=== PATIENT | male | born 1970 | race Caucasian/White ===

== ENCOUNTER 2024-11-06 14:59 | Observation (INO) | payer BC ==
[2024-11-06 15:15] VITALS: RESP 18
[2024-11-06 15:51] LABS: Basophils # (A) 0.06 10*3/uL (0.00-0.10); Basophils % (A) 0.7 %; Eosinophils # (A) 0.01 10*3/uL (0.04-0.35); Eosinophils % (A) 0.1 %; HGB 17.2 g/dL (13.0-17.0); Lymphocytes # (A) 1.91 10*3/uL (0.90-5.00); Lymphocytes % (A) 20.9 %; MCH 38.5 pg (27.0-32.0); MCHC 37.4 g/dL (32.0-37.0); MCV 102.9 fL (80.0-97.0); Mean Platelet Volume 8.5 fL (9.5-12.2); Monocytes # (A) 0.85 10*3/uL (0.20-1.00); Monocytes % (A) 9.3 %; Neutrophils # (A) 6.27 10*3/uL (1.80-7.70); Neutrophils % (A) 68.6 %; Platelet Count 236 10*3/uL (140-440); RBC 4.47 10*6/uL (4.40-5.60); RDW 12.7 % (11.5-14.5); WBC 9.14 10*3/uL (4.50-10.00)
[2024-11-06] MEDS: ONDANSETRON 4 MG/2 ML VIAL IVP STA ×2 (15:51→16:36)
[2024-11-06] MEDS: SODIUM CHLORIDE 0.9% 1,000 ML IV ONE ×2 (15:52→17:50)
[2024-11-06] MEDS: SODIUM CHLORIDE 0.9% 500 ML 500 ML IV ONE (15:52)
--- NOTE | 2024-11-06 15:59 | ED ---
General Adult HPI - General Chief complaint: Alcohol Stated complaint: detox Time Seen by Provider: 11/06/24 15:10 Source: patient, RN notes reviewed, old records reviewed Mode of arrival: wheelchair Limitations: no limitations - History of Present Illness Initial comments: This is a 54-year-old male who presents to the emergency department complaining of alcohol intoxication and acute vomiting. Patient states on Thursday he started to try to hold back from drinking but has been unsuccessful according to the fianc he continues to drink about is much as he has. Patient states this morning started vomiting and becoming very nauseous feeling lightheaded so he decided to come to the emergency department. Patient denies any fever chills or cough or patient denies chest pain or palpitations. Patient denies abdominal pain. Patient denies any seizure history with withdrawal. - Related Data Home Medications Medication Instructions Recorded Confirmed Albuterol Inhaler [Ventolin Hfa 2 puff INHALATION RT-Q4H PRN 11/06/24 11/06/24 Inhaler] Budesonide/Glycopyr/Formoterol 1 puff INHALATION RT-BID 11/06/24 11/06/24 [Breztri Aerosphere Inhaler] Allergies Allergy/AdvReac Type Severity Reaction Status Date / Time RICKY Inhibitors Allergy Anaphylaxis Verified 11/06/24 17:27 digoxin Allergy Rash/Hives Verified 11/06/24 17:27 hydrochlorothiazide Allergy Rash/Hives Verified 11/06/24 17:27 lisinopril Allergy Swelling Verified 11/06/24 17:27 Review of Systems ROS Statement: Those systems with pertinent positive or pertinent negative responses have been documented in the HPI. ROS Other: All systems not noted in ROS Statement are negative. Past Medical History Past Medical History: Diabetes Mellitus, Hypertension Additional Past Surgical History / Comment(s): left femur Past Alcohol Use History: Abuse Past Drug Use History: Marijuana General Exam - General Exam Comments Initial Comments: GENERAL: Patient is well-developed and well-nourished. Patient is nontoxic and well- hydrated and is in mild distress. ENT: Neck is soft and supple. No significant lymphadenopathy is noted. Oropharynx is clear. Moist mucous membranes. Neck has full range of motion without eliciting any pain. EYES: The sclera were anicteric and conjunctiva were pink and moist. Extraocular movements were intact and pupils were equal round and reactive to light. Eyelids were unremarkable. PULMONARY: Unlabored respirations. Good breath sounds bilaterally. No audible rales rhonchi or wheezing was noted. CARDIOVASCULAR: There is a regular rate and rhythm without any murmurs gallops or rubs. ABDOMEN: Soft and nontender with normal bowel sounds. SKIN: Skin is clear with no lesions or rashes and otherwise unremarkable. NEUROLOGIC: Patient is alert and oriented x3. Cranial nerves II through XII are grossly in tact. Motor and sensory are also intact. Normal speech, volume and content. Symmetrical smile. MUSCULOSKELETAL: Normal extremities with adequate strength and full range of motion. LYMPHATICS: No significant lymphadenopathy is noted PSYCHIATRIC: Normal psychiatric evaluation. Limitations: no limitations Course Vital Signs 11/06/24 15:08 Temperature 99.5 F Pulse Rate 123 H Respiratory 18 Rate Blood Pressure 152/97 O2 Sat by Pulse 96 Oximetry Medical Decision Making - Medical Decision Making EKG is interpreted by myself EKG shows a sinus tachycardia [address] interval is 141 QRS is 96 QT interval 339 QTc is 409. Patient's EKG shows no ST segment elevation or depression. Was pt. sent in by a medical professional or institution (, PA, ROD POINTER, urgent care, hospital, or shelter...) When possible be specific @ -No Did you speak to anyone other than the patient for history (EMS, parent, family, police, friend...)? What history was obtained from this source @ -No Did you review nursing and triage notes (agree or disagree)? Why? @ -I reviewed and agree with nursing and triage notes Were old charts reviewed (outside hosp., previous admission, EMS record, old EKG, old radiological studies, urgent care reports/EKG's, shelter records)? Report findings @ -No old charts were reviewed Differential Diagnosis? @ -Alcohol withdrawal, alcohol intoxication, acute vomiting, gastritis, alcohol hepatitis this is not an all-inclusive list EKG interpreted by me (3pts min.). @ -As above X-rays interpreted by me (1pt min.). @ -None done CT interpreted by me (1pt min.). @ -None done U/S interpreted by me (1pt. min.). @ -None done What testing was considered but not performed or refused? (CT, X-rays, U/S, labs)? Why? @ -None What meds were considered but not given or refused? Why? @ -None Did you discuss the management of the patient with other professionals (professionals i.e. , PA, ROD POINTER, lab, RT, psych nurse, social worker clinical, probate lawyer, teacher, senior grants officer, spring encaser)? Give summary @ -I spoke with sound physicians he agreed to admit the patient admit the patient wrote admitting orders Was smoking cessation discussed for >3mins.? @ -No Was critical care preformed (if so, how long)? @ -No Were there social determinants of health that impacted care today? How? (Homelessness, low income, unemployed, alcoholism, drug addiction, transportation, low edu. Level, literacy, decrease access to med. care, [facility], rehab)? @ -No Was there de-escalation of care discussed even if they declined (Discuss DNR or withdrawal of care, Hospice)? DNR status @ -No What co-morbidities impacted this encounter? (DM, HTN, Smoking, COPD, CAD, Cancer, CVA, ARF, Chemo, Hep., AIDS, mental health diagnosis, sleep apnea, morbid obesity)? @ -None Was patient admitted / discharged? Hospital course, mention meds given and route, prescriptions, significant lab abnormalities, going to OR and other pertinent info. @ -Patient was hypomagnesemic patient got 2 g of magnesium sulfate IV. Patient also received a liter and a half of normal saline. Patient also received Zofran x 2 for his nausea. Patient also received Ativan because of his anxiety. I admitted the patient to Dr. Domínguez however after patient was admitted and orders were written he decided to leave AMA Undiagnosed new problem with uncertain prognosis? @ -No Drug Therapy requiring intensive monitoring for toxicity (Heparin, Nitro, Insulin, Cardizem)? @ -No Were any procedures done? @ -No Diagnosis/symptom? @ -Alcohol intoxication Acute, or Chronic, or Acute on Chronic? @ -Acute Uncomplicated (without systemic symptoms) or Complicated (systemic symptoms)? @ -Complicated Side effects of treatment? @ -No Exacerbation, Progression, or Severe Exacerbation? @ -No Poses a threat to life or bodily function? How? (Chest pain, [place], [place], pneumonia, PE, COPD, DKA, ARF, appy, cholecystitis, CVA, Diverticulitis, Homicidal, Suicidal, threat to staff... and all critical care pts) @ -No Diagnosis/symptom? @ -Hypomagnesemia Acute, or Chronic, or Acute on Chronic? @ -Default Uncomplicated (without systemic symptoms) or Complicated (systemic symptoms)? @ -Acute Side effects of treatment? @ -None Exacerbation, Progression, or Severe Exacerbation] @ -No Poses a threat to life or bodily function? @ -No - Lab Data Result diagrams: 11/06/24 15:47 11/06/24 15:47 Lab Results 11/06/24 11/06/24 Range/Units 15:47 15:47 WBC 9.14 (4.50-10.00) 10*3/uL RBC 4.47 (4.40-5.60) 10*6/uL Hgb 17.2 H (13.0-17.0) g/dL Hct 46.0 (39.6-50.0) % MCV 102.9 H (80.0-97.0) fL MCH 38.5 H (27.0-32.0) pg MCHC 37.4 H (32.0-37.0) g/dL Plt Count 236 (140-440) 10*3/uL MPV 8.5 L (9.5-12.2) fL Immature Gran % (Auto) 0.4 % Neutrophils % 68.6 % Lymphocytes % 20.9 % Monocytes % 9.3 % Eosinophils % 0.1 % Basophils % 0.7 % Immature Gran # 0.04 (0.00-0.04) 10*3/uL Neutrophils # 6.27 (1.80-7.70) 10*3/uL Lymphocytes # 1.91 (0.90-5.00) 10*3/uL Monocytes # 0.85 (0.20-1.00) 10*3/uL Eosinophils # 0.01 L (0.04-0.35) 10*3/uL Basophils # 0.06 (0.00-0.10) 10*3/uL Sodium 137 (137-145) mmol/L Potassium 4.3 (3.5-5.1) mmol/L Chloride 100 (98-107) mmol/L Carbon Dioxide 20 L (22-30) mmol/L Anion Gap 17 mmol/L BUN 16 (9-20) mg/dL Creatinine 0.71 (0.66-1.25) mg/dL Est GFR (CKD-EPI)AfAm >90 (>60 ml/min/1.73 sqM) Est GFR (CKD-EPI)NonAf >90 (>60 ml/min/1.73 sqM) Glucose 158 H (74-99) mg/dL Calcium 8.5 (8.4-10.2) mg/dL Magnesium 1.4 L (1.6-2.3) mg/dL Total Bilirubin 1.2 (0.2-1.3) mg/dL AST 51 (17-59) U/L ALT 41 (4-49) U/L Alkaline Phosphatase 117 (38-126) U/L Total Protein 7.6 (6.3-8.2) g/dL Albumin 4.2 (3.5-5.0) g/dL Serum Alcohol 262 H* mg/dL Disposition Clinical Impression: Alcoholic intoxication, Gastritis, Hypomagnesemia Disposition: ADMITTED IP TO THIS [facility] Time of Disposition: 17:37
[2024-11-06 16:06] LABS: ALT 41 U/L (4-49); AST 51 U/L (17-59); African American GFR (CKD) >90 (>60 ml/min/1.73 sqM); Albumin 4.2 g/dL (3.5-5.0); Alkaline Phosphatase 117 U/L (38-126); Anion Gap 17 mmol/L; Blood Urea Nitrogen 16 mg/dL (9-20); Calcium 8.5 mg/dL (8.4-10.2); Carbon Dioxide 20 mmol/L (22-30); Chloride 100 mmol/L (98-107); Glucose 158 mg/dL (74-99); Magnesium 1.4 mg/dL (1.6-2.3); Non-African American GFR(CKD) >90 (>60 ml/min/1.73 sqM); Potassium 4.3 mmol/L (3.5-5.1); Sodium 137 mmol/L (137-145); Total Bilirubin 1.2 mg/dL (0.2-1.3); Total Protein 7.6 g/dL (6.3-8.2)
[2024-11-06 16:14] LABS: Alcohol 262 mg/dL
[2024-11-06] MEDS: LORazepam 2 MG/ML INJ IV STA ×2 (16:36→17:36)
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
[2024-11-06] MEDS: MAGNESIUM SULFATE-D5W PMX 1 GM in DEXTROSE/WATER 1 100ML.BAG IVPB SCH (16:48)
[2024-11-06] MEDS ORDERED: LORazepam 2 MG/ML INJ IV PRN ×3 (17:39)
[2024-11-06] MEDS ORDERED: LORazepam 1 MG TAB PO PRN (17:39)
[2024-11-06] MEDS ORDERED: LORazepam 0.5 MG TAB PO PRN (17:39)
[2024-11-06] MEDS: THIAMINE 100 MG/ML 2 ML VIAL IM STA (17:51)
[2024-11-06] MEDS: ONDANSETRON 4 MG ODT STARTER PACK 2 TAB BTL PO STA (19:47)
[2024-11-06 19:51] VITALS: BP 142/86; PULSE 110; TEMP 98.3
[2024-11-06] MEDS ORDERED: PANTOPRAZOLE 40 MG/10 ML VIAL IVP SCH (21:00)
[2024-11-07] MEDS ORDERED: FOLIC ACID 1 MG TAB PO SCH (09:00)
[2024-11-07] MEDS ORDERED: MULTIVITAMINS, THERA 1 EACH TAB PO SCH (09:00)
== END 2024-11-06 19:55 | disposition left against medical advice (07) ==
LOC: EC 14:59 → 6NMEDSUR 17:40
PROVIDERS: ADMIT Student in an Organized Health Care Education/Training Program; ATTEND Student in an Organized Health Care Education/Training Program
DX: F10.129 Alcohol abuse with intoxication, unspecified (principal); E83.42 Hypomagnesemia; K29.70 Gastritis, unspecified, without bleeding; R00.0 Tachycardia, unspecified; F41.9 Anxiety disorder, unspecified; Y90.8 Blood alcohol level of 240 mg/100 ml or more; Z79.51 Long term (current) use of inhaled steroids; Z88.8 Allergy status to other drugs, medicaments and biological substances; Z53.29 Procedure and treatment not carried out because of patient's decision for other reasons
CPT/HCPCS: 96376; 96361; 96372; 96374; 96375; 99285; 36415; 93005; 80053; 83735; 85025; 80320; 72125; 70450; G0378; J2060; J3411; J2405; J3475; S0119